=== PATIENT | female | born 1970 | race American Indian/Alaskan Native ===

== ENCOUNTER 2021-03-04 06:00 | Observation (INO) | payer BC ==
--- NOTE | 2021-03-01 10:53 | Anesthesia Consultation ---
Anesthesia Consult and Med Hx Date of service: 03/04/21 - Airway Anesthetic Teeth Evaluation: Good (Missing) ROM Head & Neck: Adequate Mental/Hyoid Distance: Adequate Mallampati Class: Class II Intubation Access Assessment: Good - Pre-Operative Health Status ASA Pre-Surgery Classification: ASA2 Proposed Anesthetic Plan: General - Pulmonary Hx Smoking: No Hx Respiratory Symptoms: No (+2FS) Hx Sleep Apnea: No (SNORES) - Central Nervous System Hx Back Pain: Yes (OCC. MILD) Hx Psychiatric Problems: Yes (Anxiety/Depression) - Hematic Hx Anemia: Yes Hx Sickle Cell Disease: Yes (TRAIT) - Other Systems Hx Alcohol Use: Yes (OCC.) Hx Substance Use: No Hx Cancer: No
[2021-03-01 10:58] LABS: Basophils # (Auto) 0.1 K/mm3 (0.0-0.1); Basophils % (Auto) 0.6 % (0.0-1.8); Eosinophils # (Auto) 0.1 K/mm3 (0.0-0.4); Eosinophils % (Auto) 1.2 % (0.0-4.3); Hematocrit 37.6 % (30.3-42.9); Hemoglobin 12.9 gm/dl (10.1-14.3); Lymphocytes # (Auto) 2.8 K/mm3 (1.2-5.4); Lymphocytes % (Auto) 25.4 % (13.4-35.0); Mean Corpuscular HGB Conc 34 % (30-34); Mean Corpuscular Volume 85 fl (79-97); Monocytes # (Auto) 0.3 K/mm3 (0.0-0.8); Monocytes % (Auto) 2.9 % (0.0-7.3); Platelet Count 236 K/mm3 (140-440); Red Blood Count 4.43 M/mm3 (3.65-5.03); Red Cell Distribution Width 14.8 % (13.2-15.2)
--- NOTE | 2021-03-02 14:13 | History and Physical Report ---
History of Present Illness Date of examination: 03/01/21 History of present illness: This is a 51 years old female who presents with patient complains of menorrhagia, metrorrhagia and dysmenorrhea, The symptoms began 6-12 months ago. Patient's work up has included a transvaginal ultrasound which revealed multiple myomas.She complains of clotting, fatigue and cramping, but denies mid-cycle spotting, lack of menses, history of ovarian cysts, history of thyroid disease, history of fibroids, history of PCOS, history of bleeding disorder and lightheadedness. Interval between menses is 10-14 days and 24 days. Menstrual flow lasts 5 days and > 7 days. Patient's symptoms when present disrupts her normal daily activities Patient desires definitive treatment Vital Signs: Patient Profile: 51 Years Old Female LMP: 02/07/2021 Height: 67 inches Weight: 202 pounds BMI: 31.63 Temp: 97.6 degrees F BP sittin / 80 (left arm) Menstrual History: LMP (date): 02/07/2021 Past History : 4 Term Births: 3 Premature Births: 0 Living Children: 3 Para: 3 Mult. Births: 0 Prev : 0 Aborta: 1 Elect. Ab: 0 Spont. Ab: 1 Ectopics: 0 HERB GROWER History Operations: Tonsillectomy Abnormal PAP: negative Uterine Anomaly: positive fibroids Infection History HIV Risk Eval: no Personal hx. 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 Risk Factors: Smoked Tobacco Use: Never smoker Smokeless Tobacco Use: Never Passive Smoke Exposure: no Caffeine Use: 0 drinks per day Exercise: yes Times/wk: 3 Seatbelt Use: 100 % Alcohol Use: yes Type: occ Review of Systems General Complains of fatigue. Denies fever, chills, sweats, anorexia, weakness, malaise, weight loss and sleep disorder. Complains of menorrhagia, pelvic pain and painful periods. Denies vaginal discharge, incontinence, dysuria, hematuria, urinary frequency, amenorrhea, abnormal vaginal bleeding, genital sores, decreased libido, painful sex, urinary urgency, hot flashes, vaginal dryness, vaginal itching and vaginal odor. CV Denies chest pains, palpitations, syncope, dyspnea on exertion, orthopnea, PND and peripheral edema. Resp Denies cough, dyspnea at rest, excessive sputum, hemoptysis, wheezing and pleurisy. GI Denies nausea, vomiting, diarrhea, constipation, change in bowel habits, abdominal pain, melena, hematochezia, jaundice, gas/bloating, indigestion/heartburn, dysphagia and odynophagia. Breast Denies left breast lump, right breast lump, nipple discharge, bloody discharge from nipple, breast pain, abnormal mammogram and breast enlargement. Psych Denies depression, anxiety, irritability and mood swings. Past History Past Medical History: other (SEE HPI FOR DETAILS) Past Surgical History: Other (SEE HPI FOR DETAILS) Social history: full code, other (SEE HPI FOR DETAILS) Family history: other (SEE HPI FOR DETAILS) Medications and Allergies Allergies Allergy/AdvReac Type Severity Reaction Status Date / Time No Known Allergies Allergy Verified 03/01/21 16:19 Home Medications Medication Instructions Recorded Confirmed Last Taken Type Acetaminophen/Pamabrom [Midol 2 tab PO DAILY 02/26/21 02/26/21 Unknown History Caplet] Active Meds: Active Medications Acetaminophen (Acetaminophen 500 Mg Tab) 1,000 mg PO ONCE NR Stop: 03/04/21 20:00 Celecoxib (Celecoxib 200 Mg Cap) 400 mg PO PREOP NR Stop: 03/04/21 20:00 Gabapentin (Gabapentin 300 Mg Cap) 600 mg PO PREOP NR Stop: 03/04/21 20:00 Lactated Ringer's (Lactated Ringers) 1,000 mls @ 125 mls/hr IV DIRECT SHANNAN Cefazolin Sodium (Ancef/Sterile Water 2 Gm/20 Ml) 2 gm in 20 mls @ 80 mls/hr IV PREOP NR; Protocol Stop: 03/04/21 23:00 Magnesium Oxide (Magnesium Oxide 400 Mg Tab) 400 mg PO ONCE NR Stop: 03/04/21 20:00 Midazolam HCl (Midazolam 2 Mg/2 Ml Inj) 2 mg IV PREOP NR Stop: 03/04/21 23:59 Review of Systems Constitutional: other (SEE HPI FOR DETAILS) Exam - Physical Exam Narrative exam: HEENT: normocephalic, no lesions or deformities Skin no significant abnormal lesions or rashes Chest: respiratory effort normal, clear to auscultation CV: regular, normal S1-S2, no murmur, no rub, no gallop Abdomen: normal bowel sounds, soft, nontender, no HSM Neuro: no gross anomalities Extremities: no clubbing, cyanosis, or edema increased hair growth HERB GROWER Exams Vulva/Vagina: No lesions, normal BUS, normal rugae Cervix: No lesions; no cervical motion tenderness Uterus: retroverted, mobile Enlarged uterus 12 to 14 weeks size Adnexae: no masses or tenderness Rectovaginal: exam defered - Constitutional Vitals: Temp Pulse Resp BP Pulse Ox 98.1 F 71 20 128/59 100 03/01/21 11:00 03/01/21 11:00 03/01/21 11:00 03/01/21 11:00 03/01/21 11:00 Results - Labs CBC & Chem 7: 03/01/21 10:30 Assessment and Plan - Patient Problems (1) Intramural leiomyoma of uterus Status: Acute Plan to address problem: Diagnosis explained to patient . Questions answered. Discussed with patient various medical, surgical and radiological therapies common for treatment including expectant management, myomectomy hysterectomy and uterine artery embolization Patient desires to retain future fertility. She desires myomectomy. Discussed risks and benefits of laparotomy and robotic assisted approaches Patient desires robotic assisted myomectomy. Discuss the risks of the surgery including infection, bleeding possibly heavy enough to require a blood transfusion, possible damage to bowel, bladder or ureter. Patient understands t hat there is a possibility that a hysterectomy maybe indicated for severe bleeding not resoved with conservative measures.Patient advised the small risks of spreading of malignancy if morcellator is used during the surgery patient understands and approve of use if necessary. All her questions were answered. Patient understands and desires to proceed. (2) Menorrhagia Status: Acute Qualifiers: Menorrhagia type: with irregular cycle Qualified Code(s): N92.1 - Excessive and frequent menstruation with irregular cycle Plan to address problem: Probably secondary to myomas (3) Dysmenorrhea Status: Acute Plan to address problem: Probably secondary to myomas
[~2021-03-04 06:00] MED LIST: ACETAMINOPHEN 500 MG TAB PO NR; CELECOXIB 200 MG CAP PO NR; GABAPENTIN 300 MG CAP PO NR; LACTATED RINGERS 1,000 ML IV SCH; MAGNESIUM OXIDE 400 MG TAB PO NR; MIDAZOLAM 2 MG/2 ML INJ IV NR
[2021-03-04] MEDS ORDERED: ceFAZolin/Water 2 GM/20 ML 2 GM/20 ML SYRINGE IV NR (07:00)
[2021-03-04] MEDS ORDERED: ROCURONIUM 50 MG/5 ML INJ IV ONE (07:04)
[2021-03-04] MEDS ORDERED: ONDANSETRON 4 MG/2 ML INJ ONE (07:04)
[2021-03-04] MEDS ORDERED: LIDOCAINE MPF (2%) 20 MG/1 ML VIAL 5 ML ONE (07:06)
[2021-03-04] MEDS ORDERED: SUCCINYLCHOLINE CHLORIDE 200 MG/10 ML INJ MDV ONE (07:06)
[2021-03-04] MEDS ORDERED: fentaNYL 250 MCG/5 ML INJ ONE (07:08)
[2021-03-04] MEDS ORDERED: propofoL 200 MG/20 ML VIAL IV ONE (07:08)
[2021-03-04] MEDS ORDERED: BUPIVACAINE/PF (0.5%) 5 MG/1 ML 30 ML VIAL INFILTRATI ONE (07:08)
[2021-03-04] MEDS ORDERED: MIDAZOLAM 2 MG/2 ML INJ ONE (07:08)
[2021-03-04] MEDS ORDERED: SODIUM CHLORIDE 0.9% 500 ML 500 ML ONE (07:09)
--- NOTE | 2021-03-04 07:18 | Anesthesia Day of Surgery ---
Anesthesia Day of Surgery - Day of Surgery Patient Examined: Yes Patient H&P Reviewed: Yes Patient is NPO: Yes
[2021-03-04] MEDS ORDERED: fentaNYL 100 MCG/2 ML INJ ONE (07:19)
[2021-03-04] MEDS ORDERED: SODIUM CHLORIDE 0.9% 100 ML ONE (07:24)
[2021-03-04] MEDS ORDERED: VASOPRESSIN 20 UNIT/1 ML INJ ONE (07:24)
[2021-03-04] MEDS ORDERED: ONDANSETRON 4 MG/2 ML INJ IV PRN (08:00)
[2021-03-04] MEDS ORDERED: HYDROmorphone 1 MG/1 ML INJ IV PRN (08:00)
[2021-03-04] MEDS ORDERED: VASOPRESSIN 20 UNIT/1 ML INJ IM ONE (09:02)
[2021-03-04] MEDS ORDERED: SODIUM CHLORIDE 0.9% IRRIG SOLN 2000 ML IR ONE (09:02)
[2021-03-04] MEDS ORDERED: SODIUM CHLORIDE 0.9% 100 ML IVPB IV ONE (09:02)
[2021-03-04] MEDS ORDERED: NEOSTIGMINE 10MG/10 ML INJ MDV ONE (10:56)
[2021-03-04] MEDS ORDERED: GLYCOPYRROLATE 0.4 MG/2 ML INJ ONE (10:57)
[2021-03-04] MEDS ORDERED: dexAMETHasone 20 MG/5 ML VIAL ONE (11:00)
[2021-03-04] MEDS ORDERED: PHENYLEPHRINE/NS 1,000 MCG/10 ML SYRINGE (OR USE) IV ONE (11:00)
[2021-03-04] MEDS ORDERED: ePHEDrine SULFATE 50 MG/1 ML INJ ONE (11:03)
--- NOTE | 2021-03-04 12:17 | Post Anesthesia Evaluation ---
- Post Anesthesia Evaluation Patient Participated: Yes Airway Patent: Yes Stable Respiratory Function: Yes Nausea/Vomiting: No Temp > 96.8F: Yes Pain Manageable: Yes Adequeate Hydration: Yes Anesthesia Complications: No Block Receding Appropriately: Not Applicable Patient on Ventilator: No
--- NOTE | 2021-03-04 12:21 | Operative Report ---
Operative Report Operative Report: Date of procedure: March 04, 2021 Pre-operative diagnosis: Symptomatic leiomyomata with menorrhagia and dysme norrhea Post-operative diagnosis: Same Procedure name(s): Robotic assisted myomectomy with conversion to laparotomy Surgeon: Georges Colón MD Bull Ladle Tender: Eboni Cobb MD and Meaghan Chris MD Anesthesia: General endotracheal EBL: 75 cc Complications: During procedure had an adequate insufflation to visualize to complete the surgery robotically. Several attempts to correct her problem with insufflation were unsuccessful. There is no evidence of internal organ damage and the procedure was completed successfully with conversion to laparotomy. Findings: Uterus approximately 10 weeks in size with to leiomyomatous present 1 fundal anteriorly second was posterior corresponding with the preoperative ultrasound report. Normal tubes and ovaries bilaterally. Specimen(s): Leiomyomata Procedure: Patient taken operating room where general endotracheal anesthesia was induced difficulty. She was placed in dorsal lithotomy position prepped and draped in usual normal sterile fashion for robotic procedure. The Landin catheter was placed in urinary bladder without difficulty speculum placed in the vagina. A medium V care uterine manipulator was placed without any difficulty. Then attention was switched to the patient's abdomen. Supra-umbilical incision was made with a knife. Spread with a hemostat. A 10-12 Trocar was placed in this incision while lifting out anterior abdominal wall under direct visualization. Intra-abdominal cavity was entered without any evidence of internal organ damage. Patient was insufflated approximately 3 and half liters of CO2 gas. Patient's pelvic findings noted above. The patient was perceived to be a candidate for robotic procedure. Three 8 mm robotic instrument trocars were placed. One on either side of the midline camera trocar approximately 8 cm from the midline and a third in the left lower quadrant approximately 2 fingerbreadths above the iliac crest. The trocars were placed under direct visualization with no signs of internal organ damage. An financial assistant port was placed in the right lower quadrant 2 fingerbreadths above the iliac crest under direct visualization without any evidence of internal organ damage, this was a 10-12 trocar. Tomi Blakely fascia closure systems were placed in both the right lower quadrant trocar position and the midline trocar camera position. The patient was then placed in severe Trendelenburg position. At this time the da Yu robot was docked on the patient's left side and robotic trocars were connected and robotic instruments placed in the normal fashion. At that time I my place under the operating hartley. Pitressin was injected at the base of both of the myomas it was seen. A midline incision was made with the unipolar scissors through the fundus and posteriorly. Incision through the myometrium reach both of the myomas and removed both bluntly and sharply the small myoma was removed through the financial assistant port the larger myoma was placed in the patient anterior cul-de-sac. Inspection of the uterus did not reveal any further myomas. It does not appear any evidence of injury into the endometrial cavity. ALL FUTURE PREGNANCIES MUST BE DELIVERED BY CESAREN SECTION The myometrial bed where the myomas were removed were inspected and was hemostatic after irrigation and Bovie. I initiated closing on its bed in layers robotically with 0 V-Loc Vicryl suture. During this process is when we experience a loss of insufflation. Insufflation did not completely go away but could not be maintained with enough distance to complete the posterior closure of the incision without insurance safe distance from adjacent organs. After the failed attempts of restoring sufficient insufflation made incision to convert to laparotomy. The needle of the suture was then buried into the myometrium. Released from the robotic needle security patrol driver also under direct visualization the myoma was released from the robotic tenaculum. All instruments were removed. The da Yu device was undocked. The patient was taken out of restraints Trendelenburg position. The trochars were then removed. The the larger trocar incisions were closed in layers with 0 Vicryl fascia and 4-0 Vicryl for the skin. The 8 mm incisions were closed subcuticular with 4-0 Vicryl. A Pfannenstiel incision was made with a scalpel this was taken down to fascia the fascia was then nicked in midline fashion incision was then made laterally with with Virk scissors the fascia was then from the underlying rectus muscles were sharply and bluntly. The rectus muscles were . The peritoneum was grasped with 2 hemostats lifting high and cut with Metzenbaum scissors with no evidence of internal organ damage. This incision was extended vertically. And peritoneum was then spread with the operators fingers. Reached and with the hand and pulled the uterus through this incision. The myometrial cavity was continued in layers with the V lock suture. The serosa layer was then closed with a baseball stitch with 0 Vicryl. Good hemostasis was obtained. The remaining myoma was then recovered with palpation throughout pelvis did had a run her intestines endocervix with no evidence of adjacent organ damage. The uterus was then inspected again copiously irrigated. Surgicel was placed over the uterine closure for postoperative hemostasis. Interceed was placed also over the incision to help prevent postoperative adhesions. The uterus then gently placed back in uterus. The rectus muscles were inspected and found to be hemostatic. The rectus muscles were reapproximated with 3-0 Vicryl. The fascia was then closed in a running manner with 0 Vicryl. This closure was hemostatic and irrigated. The subcuticular space exam were approximated with 3-0 Vicryl. The skin was then closed subcuticular manner with 4-0 Vicryl. Dermabond was placed over all the's skin closures. The patient tolerated procedure well. She was awakened in operating room and come to recovery room in good condition.
[2021-03-04] MEDS: HYDROmorphone 1 MG/1 ML INJ IV PRN ×4 (12:27→13:10)
[2021-03-04] MEDS ORDERED: ACETAMINOPHEN 325 MG TAB PO PRN (12:29)
[2021-03-04] MEDS ORDERED: MAGNESIUM HYDROXIDE (MOM) ORAL LIQD UDC PO PRN (12:29)
[2021-03-04] MEDS ORDERED: D5W/LACTATED RINGERS 1,000 ML IV SCH (13:00)
[2021-03-04] MEDS: HYDROcodone/ACETAMINOPHEN 5-325 MG TAB PO PRN ×2 (15:25→20:24)
[2021-03-04] MEDS: KETOROLAC 30 MG/1 ML INJ IV SCH (17:27)
[2021-03-04] MEDS: ceFAZolin/NS 1 GM/50 ML 1 GM/50 ML BAG IV SCH (17:28)
[2021-03-04] MEDS: ONDANSETRON 4 MG ODT TAB PO PRN (18:10)
--- NOTE | 2021-03-04 18:10 | Event Note ---
Date: 03/04/21 Day of surgery. Discuss operative findings and discussed the reason to convert to laparotomy with patient and questions answered. Patient without fever. Will ambulate in halls this evening. Good urine output. We will remove her Landin catheter. Patient is about to eat dinner. Patient is interested in going home this evening. Will reevaluate her after voiding and assess toleration of regular diet. We will continue routine postoperative care.
[2021-03-04 19:07] LABS: Hematocrit 35.7 % (30.3-42.9); Hemoglobin 12.2 gm/dl (10.1-14.3)
[2021-03-04] MEDS: DOCUSATE SODIUM 100 MG CAP PO SCH (22:13)
[2021-03-05] MEDS: KETOROLAC 30 MG/1 ML INJ IV SCH ×3 (00:17→12:32)
[2021-03-05] MEDS: ceFAZolin/NS 1 GM/50 ML 1 GM/50 ML BAG IV SCH (01:03)
--- NOTE | 2021-03-05 09:28 | Short Stay Summary ---
Short Stay Documentation Date of service: 03/05/21 - History Principal diagnosis: Symptomatic leiomyomata H&P: obtained from office Past Medical History: other (SEE HPI FOR DETAILS) Past Surgical History: Other (SEE HPI FOR DETAILS) Social history: full code, other (SEE HPI FOR DETAILS) - Allergies and Medications Current Medications: Allergies No Known Allergies Allergy (Verified 03/01/21 16:19) Home Medications Medication Instructions Recorded Confirmed Last Taken Type Acetaminophen/Pamabrom [Midol 2 tab PO DAILY 02/26/21 03/04/21 03/02/21 09:00 History Caplet] Ibuprofen [Motrin] 800 mg PO TID PRN #30 tablet 03/05/21 Unknown Rx oxyCODONE /ACETAMINOPHEN [Percocet 1 tab PO Q6HR PRN #20 tablet 03/05/21 Unk nown Rx 5/325 mg] Active Medications Acetaminophen (Acetaminophen 325 Mg Tab) 650 mg PO Q4H PRN PRN Reason: Pain MILD(1-3)/Fever >100.5/BASS Hydrocodone Bitart/Acetaminophen (Hydrocodone/Acetaminophen 5-325 Mg Tab) 2 each PO Q6H PRN PRN Reason: Pain, Moderate (4-6) Last Admin: 03/04/21 20:24 Dose: 2 each Documented by: Docusate Sodium (Docusate Sodium 100 Mg Cap) 100 mg PO BID [facility] Last Admin: 03/04/21 22:13 Dose: 100 mg Documented by: Dextrose/Lactated Ringer's ([email or web address]) 1,000 mls @ 125 mls/hr IV DIRECT SHANNAN Last Admin: 03/04/21 13:40 Dose: 125 mls/hr Documented by: Ketorolac Tromethamine (Ketorolac 30 Mg/1 Ml Inj) 30 mg IV Q6HR SHANNAN Stop: 03/09/21 17:59 Last Admin: 03/05/21 05:43 Dose: 30 mg Documented by: Magnesium Hydroxide (Magnesium Hydroxide (Mom) Oral Liqd Udc) 30 ml PO Q4H PRN PRN Reason: Constipation Ondansetron HCl (Ondansetron 4 Mg Odt Tab) 4 mg PO Q8H PRN PRN Reason: Nausea And Vomiting Last Admin: 03/04/21 18:10 Dose: 4 mg Documented by: - Physical exam General appearance: no acute distress Integumentary: no rash HEENT: Atraumatic Lungs: Normal air movement Breasts: deferred Heart: Regular rate Gastrointestinal: normoactive bowel sounds, tenderness (Appropriate postop), distended (Slightly appropriate post robotic surgery), other (Incisions healing well intact) Female Genitourinary: deferred Rectal Exam: deferred Extremities: no ischemia Neurological: Normal gait, Normal speech, Normal tone - Brief post op/procedure progress note Date of procedure: 03/04/21 (See operative note for details) - Hospital course Hospital course: Patient was admitted and underwent above procedure without complications. Her post operative course was benign she was afebrile throughout. Patient postoperative hematocrit was in an acceptable range. Patient had no orthostatic symptoms. Patient was tolerating regular diet and voiding without difficulty at time of discharge. Patient incision was healing well without evidence of infection. - Disposition Condition at discharge: Good Disposition: DC-01 TO HOME OR SELFCARE - Discharge Diagnoses (1) Intramural leiomyoma of uterus Status: Acute (2) Menorrhagia Status: Acute Qualifiers: Menorrhagia type: with irregular cycle Qualified Code(s): N92.1 - Excessive and frequent menstruation with irregular cycle (3) Dysmenorrhea Status: Acute Short Stay Discharge Plan Activity: advance as tolerated Diet: regular Additional Instructions: Patient office for fever, chills, nausea, vomiting, excessive vaginal bleeding or pain uncontrolled by pain relief. Patient instructed no heavy lifting for weeks. Follow up with: PRIMARY CARE, [Primary Care Provider] - 7 Days Prescriptions: Ibuprofen [Motrin] 800 mg PO TID PRN #30 tablet PRN Reason: Pain oxyCODONE /ACETAMINOPHEN [Percocet 5/325 mg] 1 tab PO Q6HR PRN #20 tablet PRN Reason: Pain
[2021-03-05] MEDS: HYDROcodone/ACETAMINOPHEN 5-325 MG TAB PO PRN (09:33)
[2021-03-05] MEDS: ONDANSETRON 4 MG ODT TAB PO PRN (09:33)
[2021-03-05] MEDS: DOCUSATE SODIUM 100 MG CAP PO SCH (09:33)
[2021-03-05 14:15] VITALS: BP 115/66
== END 2021-03-05 13:10 | disposition home or self-care (01) ==
LOC: OR 06:00 → OB 12:29
PROVIDERS: ADMIT Obstetrics & Gynecology; ATTEND Obstetrics & Gynecology
DX: D25.1 Intramural leiomyoma of uterus (principal); Z20.822 Contact with and (suspected) exposure to COVID-19; N92.0 Excessive and frequent menstruation with regular cycle; N94.6 Dysmenorrhea, unspecified; Z98.890 Other specified postprocedural states; Z90.49 Acquired absence of other specified parts of digestive tract
CPT/HCPCS: 36415; 58545; 64450; 84703; 85014; 85018; 85025; 86850; 86900; 86901; 88305; 96361; 96365; 96366; 96375; 96376; A4217; C1765; C1782; G0378; J0330; J0690; J1100; J1170; J1885; J2250; J2370; J2405; J2704; J2710; J3010; J7040; J7120; J7121; S2900; U0003; Q0162